=== PATIENT | female | born 1975 | race Caucasian/White ===

== ENCOUNTER 2017-12-21 18:06 | Emergency (ER) | payer BC ==
[~2017-12-21] VITALS: Ht 162.6 cm; Wt 63.6 kg
[~2017-12-21 18:06] MED LIST: GLUCOPHAGE500 MG PO; MOTRIN800 MG PO; PERCOCET 325 MG1 TA2 PO; PRENATAL1 TA1 PO; ZANTAC 150150 MG PO; [UNRECOGNIZED DRUG - OTHER]
[2017-12-21 18:11] VITALS: TEMP 97.9
[2017-12-21 18:32] LABS: BASO # 0.1 (0.0-0.2); BASO % 0.7 % (0.0-2.0); EOS # 0.2 (0.0-0.7); EOS % 2.2 % (0-4.0); GRAN # 3.6 (1.4-6.5); GRAN % 49.4 % (42.2-75.2); HEMATOCRIT 40.7 % (37.0-47.0); HEMOGLOBIN 13.7 g/dl (12.5-16.0); LYMPH # 2.7 (1.2-3.4); LYMPH % 36.6 % (20.0-51.0); MEAN CELL VOLUME 85 fl (80.0-100.0); MEAN CORPUSCULAR HEMOGLOBIN 29 pg (27.0-31.0); MEAN CORPUSCULAR HGB CONC 34 g/dl (33.0-37.0); MEAN PLATELET VOLUME 9.1 fl (7.4-10.4); MONO # 0.8 (0.1-0.6); PLATELET COUNT 273 K/mm3 (130-400); RED BLOOD COUNT 4.77 M/mm3 (4.10-5.30); REDCELL DISTRIBUTION WIDTH-CV 12.1 % (11.5-14.5)
[2017-12-21 18:45] LABS: ALANINE AMINOTRANSFERASE 31 U/L (9-52); ALBUMIN 4.6 gm/dL (3.5-5.0); ALKALINE PHOSPHATASE 62 U/L (50-136); ANION GAP 12 mmol/L (7-16); AST,SGOT 31 U/L (15-37); BILIRUBIN,TOTAL 0.5 mg/dL (0.0-1.0); BLOOD UREA NITROGEN 11 mg/dL (7-17); CALCIUM 9.5 mg/dL (8.4-10.2); CARBON DIOXIDE 26 mmol/L (22-30); CHLORIDE 101 mmol/L (98-107); CREATININE, serum 0.81 mg/dL (0.52-1.25); GLUCOSE 91 mg/dL (74-106); LIPASE 66 U/L (23-300); POTASSIUM 3.7 mmol/L (3.4-5.0); SODIUM 138 mmol/L (137-145); TOTAL PROTEIN 7.9 gm/dL (6.4-8.2)
[2017-12-21] MEDS ORDERED: GLUCOPHAGE XR500 M1 (18:53)
[2017-12-21 18:59] LABS: TROPONIN-I < 0.012 ng/mL (0.000-0.034)
[2017-12-21 20:35] VITALS: BP 135/88; PULSE 76
== END 2017-12-21 20:35 | disposition home or self-care (01) ==
LOC: COL.ER 18:06
PROVIDERS: Emergency Medicine
DX: R00.2 Palpitations (principal); E78.5 Hyperlipidemia, unspecified; Z79.84 Long term (current) use of oral hypoglycemic drugs; Z79.82 Long term (current) use of aspirin
CPT/HCPCS: J7030

== ENCOUNTER → 2017-12-30 | Outpatient (CLI) | payer BC ==
[2005-12-14 07:00] VITALS: PULSE 66; TEMP 98.6
[~2017-12-30] MED LIST changes: +GLUCOPHAGE XR500 M1
== END ==
LOC: COL.RAD 09:29
DX: E04.9 Nontoxic goiter, unspecified (principal)

== ENCOUNTER → 2018-11-02 | Outpatient (CLI) | payer BC ==
[2005-12-14 07:00] VITALS: PULSE 66; TEMP 98.6
== END ==
LOC: MC.RAD 13:55
DX: Z12.31 Encounter for screening mammogram for malignant neoplasm of breast (principal)

== ENCOUNTER → 2020-11-01 | Outpatient (CLI) | payer BC ==
[2005-12-14 07:00] VITALS: PULSE 66; TEMP 98.6
== END ==
LOC: MC.RAD 07:19
DX: Z12.31 Encounter for screening mammogram for malignant neoplasm of breast (principal)

== ENCOUNTER → 2022-07-23 | Outpatient (CLI) | payer BC ==
[2005-12-14 07:00] VITALS: PULSE 66; TEMP 98.6
== END ==
LOC: MC.RAD 07:35
DX: Z12.31 Encounter for screening mammogram for malignant neoplasm of breast (principal)